=== PATIENT | male | born 1995 | race Caucasian/White ===

== ENCOUNTER 2017-11-13 16:57 | Inpatient (IN) | payer OTHER ==
[~2017-11-13] VITALS: Ht 170.2 cm; Wt 88.5 kg
[2017-11-13] MEDS ORDERED: PRILOSEC10 MG (17:09)
== END 2017-11-16 19:33 | disposition home or self-care (01) | DRG 282 ==
LOC: ER 16:57 → SEC-K 11-14 10:22 → MEDJ 11-14 10:22 → MEDI 11-15 20:11
PROC: B246ZZZ Ultrasonography of Right and Left Heart (ICD-10-PCS; principal; 2017-11-14)
PROC: 4A12X4Z Monitoring of Cardiac Electrical Activity, External Approach (ICD-10-PCS; 2017-11-14)
DX: I21.A1 Myocardial infarction type 2 (principal); I24.9 Acute ischemic heart disease, unspecified; R00.2 Palpitations